=== PATIENT | female | born 1955 | race Caucasian/White ===

== ENCOUNTER 2016-05-13 09:49 | Emergency (ER) | payer MEDICARE, OTHER ==
[2016-05-13 10:39] LABS: BASOPHIL 0.4 % (0-2); HCT 37.7 % (37.0-47.0); HGB 12.9 g/dl (12.5-16.0); LYMPHOCYTE 29.2 % (15-48); MCHC 34.2 g/dL (32.0-36.0); MCV 84.7 fL (78.0-100.0); MONOCYTE 6.1 % (0-12); MPV 9.7 fL (6.0-9.5); NEUTROPHIL 61.3 % (41-80); PLT 213 K/uL (150-400); RBC 4.45 M/uL (4.20-5.40); RDW 13.8 % (11.5-14.0); WBC 5.3 K/uL (4.0-10.5)
[2016-05-13 10:53] LABS: CREATININE 0.8 mg/dL (0.5-1.0); POTASSIUM 3.6 mmol/L (3.5-5.1)
== END 2016-05-13 13:12 | disposition home or self-care (01) ==
LOC: FER 09:49
PROVIDERS: Internal Medicine
DX: G91.9 Hydrocephalus, unspecified (principal); R23.8 Other skin changes; I10 Essential (primary) hypertension; E03.9 Hypothyroidism, unspecified; G43.909 Migraine, unspecified, not intractable, without status migrainosus; F32.9 Major depressive disorder, single episode, unspecified; E78.5 Hyperlipidemia, unspecified; Z88.2 Allergy status to sulfonamides
CPT/HCPCS: 36415; 70450; 71010; 80048; 85025

== ENCOUNTER 2021-01-28 17:58 | Emergency (ER) | payer MEDICARE ==
[~2021-01-28 17:58] MED LIST: ASPIRIN325 MG PO; CIPRO500 MG PO; ELAVIL25 MG PO; FLOMAX 0.4 MG0.4 MG PO; HYDROCHLOROTH12.5 M2 PO; IBUPROFEN800 MG PO; LEVOTHYROXINE112 MCG PO; LOPRESSOR50 MG PO; NORCO 5-325 TA1 EACH PO; OMEGA 3 500 SO1 EACH PO; ONDANSETRON ODT4 MG SL; OXYBUTYNIN CHLO10 MG PO; PRAVASTATIN SOD40 MG PO; TOPIRAMATE50 MG PO; ZOFRAN4 MG SL
[2021-01-28 20:44] LABS: BILIRUBIN NEGATIVE (NEGATIVE); BLOOD TRACE-INTACT Ery/uL (NEGATIVE); CLARITY CLEAR (CLEAR); COLOR YELLOW (YELLOW); GLUCOSE (U) NORMAL (NORMAL); LEUKOCYTES NEGATIVE Leu/uL (NEGATIVE); NITRITE NEGATIVE (NEGATIVE); PROTEIN TRACE (LOW) mg/dL (NEGATIVE); UROBILINOGEN 0.2 mg/dL (0.2-1.0)
[2021-01-28 20:50] LABS: AMORPHOUS PHOSPHATE CRYSTALS MODERATE; URINARY WBC RARE
[2021-01-28 22:38] LABS: BASOPHIL 0.3 % (0-2); EOSINOPHIL 0.3 % (0-7); HGB 13.6 g/dl (12.5-16.0); LYMPHOCYTE 13.1 % (15-48); MCH 28.3 pg (25.0-31.0); MCHC 33.2 g/dL (32.0-36.0); MCV 85.4 fL (78.0-100.0); MONOCYTE 8.6 % (0-12); MPV 9.7 fL (6.0-9.5); NEUTROPHIL 76.9 % (41-80); NRBC 0; PLT 243 K/uL (150-400); RDW 13.8 % (11.5-14.0); WBC 11.6 K/uL (4.0-10.5)
[2021-01-28 22:57] LABS: ALBUMIN 3.2 g/dL (3.4-5.0); BILIRUBIN - TOTAL 0.6 mg/dL (0.2-1.0); BUN/CREAT RATIO (CALC) 20.9 RATIO; CREATININE 1.15 mg/dL (0.51-0.95); GLOBULIN (CALCULATION) 4.2 g/dL; TOTAL PROTEIN 7.4 g/dL (6.4-8.2)
[2021-01-28 23:09] LABS: POTASSIUM 2.3 mmol/L (3.5-5.1)
== END 2021-01-29 08:38 | disposition other institution (70) ==
LOC: FER 17:58
PROVIDERS: Internal Medicine
DX: N13.2 Hydronephrosis with renal and ureteral calculous obstruction (principal); I10 Essential (primary) hypertension; Z88.2 Allergy status to sulfonamides
CPT/HCPCS: 36415; 80053; 81001; 85025; 87088; J1170; J2270; J2405; J3480; J7030